=== PATIENT | female | born 1955 | race Caucasian/White ===

== ENCOUNTER 2016-10-15 15:41 | Emergency (ER) | payer MEDICAID ==
--- NOTE | 2016-10-15 16:27 | ER PHYSICIAN DOCUMENTATION ---
Physician Documentation [facility] Name:Linh Mack Age:61 yrs Sex:Female :1955 Arrival Date:10/15/2016 Time:15:41 Bed4 Private MD: Blair Faith Disposition: 10/15/16 16:05 Discharged to Home/Self Care. Impression: Follow-Up Exam. - Condition is Good. - Discharge Instructions: Examination, Physical - MEDICAL SCREENING EXAM, NonUrgent. - Medical Reconciliation form form. - Follow up: Private Physician; When: 7 - 10 days; Reason: Recheck today's complaints, Continuance of care. - Problem is new. - Symptoms are resolved. - Notes: Keep entrance wound clean, dry and covered. HPI: 10/15 15:57 This 61 yrs old Female presents to ER with complaints of Left wrist Swelling. cd 15:58 The patient or guardian reports swelling, Patient reports having Angiography yesterday cd at [facility] by Dr. Kwasi Mcdaniel. No new CAD was found and previous stents were patent. An bhaskar wrap was kept on over the entrance wound until 17:30 yesterday. Then a band aid. The patient's sister thought she may have some swelling, so recommended she come to the ED for evaluation.. The complaints affect the left wrist diffusely. Historical: - Allergies: PENICILLINS; - Home Meds: 1. SLow-Mag w/ Calcium 143 MG 2. metoprolol tartrate 50 mg oral tab 1 tab 2 times per day with meals 3. Lisinopril Oral 4. Statin 5. Aspirin Oral 6. coQ10 (liposomal ubiquinol) oral - PMHx: ARTHRITIS; HIGH CHOLESTEROL; CAD; SEIZURES; ALCOHOLISM; Alcohol (ETOH) Withdrawal(May 27, 2016); Seizure (May 27, 2016); Paroxysmal Supraventricular Tach (PSVT)(May 27, 2016); - PSHx: APPENDECTOMY; MYOCARDIAL INFARCTION; Angioplasty (2011); angiocath , normal 10/15/16; - Tetanus: < 10 years. - Ebola Screening: : Patient negative for fever greater than or equal to 101.5 degrees Fahrenheit, and additional compatible Ebola Virus Disease symptoms. Patient denies exposure to infectious person. Patient denies travel to an Ebola-affected area in the 21 days before illness onset. No symptoms or risks identified at this time. . - Immunization history: Unable to Obtain. - Social history: Smoking status: Patient uses tobacco products, light tobacco smoker. ROS: 16:02 Constitutional: Negative for chills, fever. cd 16:02 MS/extremity: Positive for well healed left wrist radial artery entrance wound. No swelling, redness or tenderness noted.. 16:02 All other systems are negative. Exam: 16:03 Hand exam: is negative for acute changes, Circulation is intact in all extremities. cd Pulses: noted to be 4+ in the right radial artery and left radial artery, sensation intact. 16:03 Skin: Exam negative for acute changes, cellulitis, is not appreciated. 16:03 Constitutional: The patient appears alert, awake, anxious. Vital Signs: 15:56 BP 180 / 76 (auto/); Pulse 50; Resp 18; Temp 98.3; Pulse Ox 96% on R/A; Pain 0/10; rs 15:57 Pulse Ox 97% ; rs 16:06 BP 157 / 70 (auto/); rs 16:07 Pulse Ox 96% ; rs MDM: 15:57 Patient medically screened. cd 16:04 Data reviewed: vital signs, nurses notes, old medical records, and as a result, I will cd discharge patient. Counseling: I had a detailed discussion with the patient and/or guardian regarding: the historical points, exam findings, and any diagnostic results supporting the discharge/admit diagnosis, the need for outpatient follow up, for a recheck, with the patient's primary care provider, to return to the emergency department if symptoms worsen or persist or if there are any questions or concerns that arise at home. Dispensed Medications: No medications were administered Signatures: Sheeba Araya, RN RN rs Blair Potter MD MD cd
--- NOTE | 2016-10-15 16:27 | ER NURSING DOCUMENTATION ---
Nurse's Notes [facility] Name:Linh Mack Age:61 yrs Sex:Female :1955 Arrival Date:10/15/2016 Time:15:41 Bed4 Private MD: Diagnosis:Follow-Up Exam Presentation: 10/15 15:58 Presenting complaint: Patient states: Had an angiocath done yesterday, and her sister rs thought her left wrist was swollen today (where the cath was inserted). Denies having any pain, fever, discomfort, drainage, numbness, etc. No CP or SOB. Dr Mcdaniel did the cath and said her vessels and stent that was put in 5 years ago look very good. Transition of care: Home. 15:58 Acuity: REX 4 rs 15:58 Method Of Arrival: Private Vehicle Triage Assessment: 16:17 General: Appears comfortable, well developed, well nourished, well groomed, Behavior is rs cooperative, pleasant. Pain: Denies pain. Neuro: No deficits noted. Level of Consciousness is awake, alert, Oriented to person, place, time, event. Cardiovascular: No deficits noted. Capillary refill < 3 seconds Heart tones S1 S2 present Pulses are 3+ in right radial artery and left radial artery Denies fatigue, lightheadedness, palpitations, Chest pain is denied. Respiratory: No deficits noted. Respiratory effort is even, unlabored, Respiratory pattern is regular, symmetrical, Breath sounds are clear. Derm: No deficits noted. Skin is pink, warm & dry. Has a very small puncture samuel on her left anterior wrist where the catheter was inserted. The surrounding area is not edematous, very slight ecchymosis, nontender, and both of her hands are pink, warm and dry. Compared in size and color and found no differences. Cap refill in both hands is < 3 sec. Historical: - Allergies: PENICILLINS; - Home Meds: 1. SLow-Mag w/ Calcium 143 MG 2. metoprolol tartrate 50 mg oral tab 1 tab 2 times per day with meals 3. Lisinopril Oral 4. Statin 5. Aspirin Oral 6. coQ10 (liposomal ubiquinol) oral - PMHx: ARTHRITIS; HIGH CHOLESTEROL; CAD; SEIZURES; ALCOHOLISM; Alcohol (ETOH) Withdrawal(May 27, 2016); Seizure (May 27, 2016); Paroxysmal Supraventricular Tach (PSVT)(May 27, 2016); - PSHx: APPENDECTOMY; MYOCARDIAL INFARCTION; Angioplasty (2011); angiocath , normal 10/15/16; - Tetanus: < 10 years. - Ebola Screening: : Patient negative for fever greater than or equal to 101.5 degrees Fahrenheit, and additional compatible Ebola Virus Disease symptoms. Patient denies exposure to infectious person. Patient denies travel to an Ebola-affected area in the 21 days before illness onset. No symptoms or risks identified at this time. . - Immunization history: Unable to Obtain. - Social history: Smoking status: Patient uses tobacco products, light tobacco smoker. Screenin:25 Infectious Disease Risk None. Abuse screen: Denies threats or abuse. Nutritional rs screening: No deficits noted. Vital Signs: 15:56 BP 180 / 76 (auto/); Pulse 50; Resp 18; Temp 98.3; Pulse Ox 96% on R/A; Pain 0/10; rs 15:57 Pulse Ox 97% ; rs 16:06 BP 157 / 70 (auto/); rs 16:07 Pulse Ox 96% ; rs ED Course: 15:47 Patient arrived in ED. cj 15:56 Notified ED Physician of patient's arrival and chief complaint. Dr. Potter notified. Arm rs band placed on Bed in low position Call Light in Reach Side rails up x1. Family accompanied patient. 15:57 Blair Potetr MD is Attending Physician. cd 15:57 Sheeba Araya RN is Primary Nurse. rs 16:03 Triage completed. rs Administered Medications: No medications were administered Outcome: 16:05 Discharge ordered by . cd 16:25 Discharged to home ambulatory. rs 16:25 Condition: good 16:25 Discharge instructions given to patient, family, Instructed on discharge instructions, Demonstrated understanding of instructions. 16:26 Patient left the ED. rs 10/16 10:23 Discharge F/U Call: Unable to reach: no answer la Signatures: Sheeba Araya, SABINE RN Blair Nuñez MD MD cd Alexander, Linda la Jones, Carissa
== END 2016-10-15 16:26 | disposition home or self-care (01) ==
LOC: ER 15:41
DX: M79.89 Other specified soft tissue disorders (principal); Z98.890 Other specified postprocedural states; Z95.5 Presence of coronary angioplasty implant and graft; E78.00 Pure hypercholesterolemia, unspecified; Z79.82 Long term (current) use of aspirin; Z79.899 Other long term (current) drug therapy
CPT/HCPCS: 99281